=== PATIENT | female | born 1970 | race Caucasian/White ===

== ENCOUNTER 2017-02-22 12:51 | Observation (INO) ==
[2017-02-22 13:27] LABS: Basophils # 0.1 K/mcL (0.0-0.2); Basophils % 1.1 %; Eosinophils # 0.1 K/mcL (0.0-0.6); Eosinophils % 1.7 %; Hematocrit 43.2 % (35.3-44.9); Hemoglobin 14.2 g/dL (11.5-15.4); Immature Granulocytes % 0.2 % (0-4); Lymphocytes # 1.8 K/mcL (0.6-4.6); Lymphocytes % 37.7 %; Mean Corpuscular HGB Conc 32.9 g/dL (31.6-35.5); Mean Corpuscular Hemoglobin 29.9 pg (28.0-33.3); Mean Corpuscular Volume 90.9 fL (83.0-100.0); Mean Platelet Volume 12.8 fL (9.4-12.4); Monocytes # 0.6 K/mcL (0.0-1.3); Monocytes % 12.3 %; Neutrophils # 2.2 K/mcL (1.6-8.9); Platelet Count 130 K/mcL (140-400); Red Blood Count 4.75 M/mcL (3.82-4.97)
[2017-02-22 13:34] LABS: INR 1.1; Prothrombin Time 12.1 Seconds (9.4-12.1)
[2017-02-22 13:37] LABS: Activated Partial Thrombo Time 27.5 Seconds (26.0-36.0)
[2017-02-22 13:39] LABS: BUN/Creatinine Ratio 16 (6-26); Blood Urea Nitrogen 13 mg/dL (7-20); Calcium 9.4 mg/dL (8.6-10.8); Carbon Dioxide 27 mEq/L (19-29); Chloride 107 mEq/L (98-109); Glucose 82 mg/dL (70-99); Osmolality,Calculated 291 (280-300); Potassium 3.9 mEq/L (3.5-4.5); Sodium 141 mEq/L (136-145); eGFR For African Americans > 60 (> 60); eGFR For Non-African Americans > 60 (> 60)
[2017-02-22 13:40] LABS: Albumin 3.9 g/dL (3.5-5.0); Albumin/Globulin Ratio 1.1 (1.1-2.2); Bilirubin,Direct 0.2 mg/dL (0.0-0.5); Bilirubin,Indirect 0.3 mg/dL (0.0-1.2); Bilirubin,Total 0.5 mg/dL (0.2-1.2); Globulin 3.4 g/dL (2.4-3.5); Total Protein 7.3 g/dL (6.0-8.3)
--- NOTE | 2017-02-22 13:41 | Emergency Department Note ---
Disposition Clinical Impression: Chest pain, CAD (coronary artery disease), HLD (hyperlipidemia), Stented coronary artery, Abnormal EKG, Anxiety Disposition: Admitted As Inpatient Referrals: Bharath Perera DO [Primary Care Provider] - Forms: ED Satisfaction Letter General Adult HPI - General Chief complaint: ED Chest Pain Stated complaint: chest pain Time Seen by Provider: 02/22/17 13:05 Source: patient Limitations: no limitations - History of Present Illness HPI Narrative: 46-year-old female with known coronary disease and multiple cardiac stents reports emergency department complaining of midsternal chest pain radiating to the left arm. She has had intermittent symptoms for one week. The patient has had no trauma. No fever. No cough. No shortness of breath or coughing up blood or leg swelling or pain. No abdominal pain vomiting or diarrhea. There is no history of acute back pain. She has no personal history of aneurysm or DVT or PE. The patient's concerned about her heart. She as had some anxiety symptoms but is not been depressed or feeling suicidal or homicidal. The patient takes Plavix and aspirin daily. The pain is not necessarily associated with exertion. The the pain has been intermittent and recurring. She became concerned so she came to the ED for evaluation. Pain Scale: 0 - Related Data Home Medications Medication Instructions Recorded Confirmed Folic Acid 1 mg PO DAILY 11/22/15 12/29/15 Methotrexate [Otrexup] 10 mg PO QWEEK PRN 11/22/15 12/29/15 Previous Rx's Medication Instructions Recorded Aspirin 81 mg PO DAILY #30 tab.chew 11/24/15 Atorvastatin [Lipitor] 80 mg PO HS #30 tablet 11/24/15 Carvedilol [Coreg] 6.25 mg PO BIDWM #60 tablet 11/24/15 Clopidogrel [Plavix] 75 mg PO DAILY #30 tablet 11/24/15 Lisinopril [Zestril] 2.5 mg PO DAILY #30 tablet 11/24/15 Nitroglycerin 0.4 mg SL Q5MIN PRN #30 tab.subl 11/24/15 Allergies Allergy/AdvReac Type Severity Reaction Status Date / Time No Known Allergies Allergy Verified 11/22/15 12:48 All systems ED: reviewed and negative except as stated. Past Medical History - Past Medical History Medical history: Reports: arthritis, coronary artery disease, hyperlipidemia, myocardial infarction Surgical history: Reports: angioplasty/stent, Psychiatric history: Reports: no psych history QUALITY CONTROL ASSOCIATE history: Reports: no QUALITY CONTROL ASSOCIATE history - Social History Smoking Status: Former smoker Smokeless Tobacco Status: No Alcohol use: Reports: none Drug use: Reports: none Physical Exam - General Limitations: no limitations General appearance: alert, in no apparent distress - Head Head exam: atraumatic, normocephalic, normal inspection - Eye Eye exam: Present: normal appearance, PERRL, EOMI. Absent: scleral icterus, conjunctival injection, miosis, mydriasis - ENT ENT exam: normal exam, normal oropharynx, mucous membranes moist, TM's normal bilaterally, normal external ear exam - Neck Neck exam: Present: normal inspection, full ROM, trachea midline. Absent: tenderness, meningismus - Chest Chest inspection: Present: normal inspection, symmetric chest wall rise. Absent : tenderness - Respiratory Respiratory exam: Present: normal lung sounds bilaterally. Absent: respiratory distress, accessory muscle use, prolonged expiratory phase - Cardiovascular Cardiovascular exam: Present: regular rate, normal rhythm, normal heart sounds - Abdominal Exam Abdominal exam: Present: soft, Non-Tender, normal bowel sounds. Absent: tenderness, distention, guarding, rebound, rigidity, pulsatile mass - Extremities Exam Extremities exam: Present: normal inspection, full ROM, normal capillary refill. Absent: tenderness, pedal edema, joint swelling, calf tenderness - Expanded Lower Extremity Exam Lower leg exam: Absent: Homans' sign Neurovascular/Tendon exam: Present: normal capillary refill. Absent: pulse deficit, motor deficit, sensory deficit, tendon deficit, extremity cold to touch , pallor - Back Exam Back exam: Present: normal inspection, full ROM. Absent: tenderness, CVA tenderness (R), CVA tenderness (L), vertebral tenderness - Neurological Exam Neurological exam: Present: alert, oriented X3, CN II-XII intact. Absent: motor sensory deficit - Psychiatric Psychiatric exam: Present: normal affect, normal mood - Skin Skin exam: Present: warm, dry, intact, normal color. Absent: rash, cyanosis, diaphoresis, erythema, pallor, mottled Course Vital Signs Temperature 98.4 F 02/22/17 13:02 Pulse Rate 89 02/22/17 13:02 Respiratory Rate 16 02/22/17 13:02 Blood Pressure 157/106 02/22/17 13:02 O2 Sat by Pulse Oximetry 98 02/22/17 13:02 Temperature 98.4 F 02/22/17 13:02 Pulse Rate 85 02/22/17 13:17 Respiratory Rate 16 02/22/17 13:17 Blood Pressure 151/99 02/22/17 13:17 O2 Sat by Pulse Oximetry 98 02/22/17 13:17 Oxygen Delivery Oxygen Delivery Room Air Medical Decision Making - MDM Narrative Medical decision making narrative: The patient's EKG shows some slight ST elevations in the inferior leads, similar to previous EKG, we consulted with Dr. Cordova, nail technician teacher, who does not feel the patient meets STEMI criteria and does not need to go to the [facility] immediately. Based on the patient's risk factors including coronary disease, hyperlipidemia, obesity, age, previous coronary stents, and acute chest pain, I thought it be appropriate to admit the patient at the hospital, I discussed case with the hospice on-call who is except for the patient to their care. Aspirin was ordered. The patient is currently stable. - Lab Data Lab results reviewed: Yes I reviewed the patient's lab results. Result diagrams: 02/22/17 13:15 02/22/17 13:15 Lab Results 02/22/17 02/22/17 02/22/17 Range/Units 13:15 13:15 13:15 WBC 4.7 (4.3-11.1) K/mcL RBC 4.75 (3.82-4.97) M/mcL Hgb 14.2 (11.5-15.4) g/dL Hct 43.2 (35.3-44.9) % MCV 90.9 (83.0-100.0) fL MCH 29.9 (28.0-33.3) pg MCHC 32.9 (31.6-35.5) g/dL RDW 13.0 (11.5-14.5) % Plt Count 130 L (140-400) K/mcL MPV 12.8 H (9.4-12.4) fL Immature Gran % 0.2 (0-4) % Seg Neutrophils % 47.0 % Lymphocytes % 37.7 % Monocytes % 12.3 % Eosinophils % 1.7 % Basophils % 1.1 % Neutrophils # 2.2 (1.6-8.9) K/mcL Lymphocytes # 1.8 (0.6-4.6) K/mcL Monocytes # 0.6 (0.0-1.3) K/mcL Eosinophils # 0.1 (0.0-0.6) K/mcL Basophils # 0.1 (0.0-0.2) K/mcL PT 12.1 (9.4-12.1) Seconds INR 1.1 APTT 27.5 (26.0-36.0) Seconds Sodium 141 (136-145) mEq/L Potassium 3.9 (3.5-4.5) mEq/L Chloride 107 (98-109) mEq/L Carbon Dioxide 27 (19-29) mEq/L BUN 13 (7-20) mg/dL Creatinine 0.79 (0.57-1.11) mg/dL Est GFR ( Amer) > 60 (> 60) Est GFR (Non-Af Amer) > 60 (> 60) BUN/Creatinine Ratio 16 (6-26) Glucose 82 (70-99) mg/dL Calculated Osmolality 291 (280-300) Calcium 9.4 (8.6-10.8) mg/dL - Radiology Data Radiology results reviewed: Yes I reviewed the patient's radiology results.
[2017-02-22] MEDS ORDERED: Aspirin 325 MG TABLET PO ONE (13:45)
--- NOTE | 2017-02-22 15:57 | Internal Med History&Physical ---
Date of Encounter: 02/22/17 Time of Encounter: 14:30 Assessment and Plan (1) Chest pain Current visit: Yes Status: Acute Patient with chest pain is atypical in nature. Associated with uncontrolled hypertension. History of coronary artery disease and CO. Observation in the hospital. Trend troponins. Telemetry. Stress test in a.m. Check lipid profile and A1c. Control blood pressure. Qualifiers: Chest pain type: precordial pain Qualified Code(s): R07.2 - Precordial pain (2) Essential hypertension Current visit: Yes Status: Chronic Uncontrolled. Resume home medications. Patient has not taken her medications this morning. We will monitor blood pressure closely and adjust antihypertensive regimen accordingly. (3) CAD (coronary artery disease) Current visit: Yes Status: Chronic Continue aspirin, Plavix beta daly and statin. Qualifiers: Coronary Disease-Associated Artery/Lesion type: [place] artery [place] vs. transplanted heart: [place] heart Associated angina: with other forms of angina Qualified Code(s): I25.118 - Atherosclerotic heart disease of [place] coronary artery with other forms of angina pectoris (4) HLD (hyperlipidemia) Current visit: Yes Status: Acute Continue statin. Check lipid profile. Qualifiers: Hyperlipidemia type: mixed hyperlipidemia Qualified Code(s): E78.2 - Mixed hyperlipidemia Internal Medicine - H&P: HPI Chief complaint: Chest pain Admitted From: Emergency Dept Plans for Post Hospital Care: Home History of present illness: Ms. Cadet is a 46 year old female patient with history of coronary artery disease status post PCI with stents in October 2015 presented to the ER with complaints of chest pain. Her pain is mainly located in the left upper chest region close to her shoulder. She is nonradiating. It is not like the pain she had when she had a prior CO. She was at rest when this began. This pain has been intermittent for the past week and not associated with any shortness of breath or exertion. Her pain has improved after coming to the ER. She is on dual antiplatelet therapy and also take statin and beta daly. She follows up with cardiology as outpatient. Since her cardiac catheterization in 2015, she had been mostly pain free with occasional intermittent twinges lasting for a few seconds. She has never had this kind of pain. No nausea or vomiting. No dizziness or lightheadedness. She does have occasional palpitations. She denies any trauma or injury to her left shoulder. Past Med Surg Social Fam HX - Past Medical History Attestation: Yes The following information was validated with the patient. Source: patient Medical history: arthritis, coronary artery disease, hyperlipidemia, myocardial infarction, other (Psoriasis) Psychiatric history: no psych history - Past Surgical History Surgical History: angioplasty/stent, - Social History Smoking Status: Former smoker Smokeless Tobacco Status: No Alcohol use: none Drug use: none - Family History Father Living Status: Still Living Hx Family Cardiac Disorders: Yes (CO in 60s. ) Hx Family Endocrine Disorder: Yes (diabetes) Paternal Grandmother Family Member Ethnicity: Non- Living Status: Still Living Hx Family Cardiac Disorders: Yes (grandmother, father) Hx Family Respiratory Disorders: Yes (black lung) Hx Family Cancer: No Hx Family GI Disorders: No Hx Family Endocrine Disorder: Yes (grandmother, aunt) Hx Family Neuromuscular Disorders: No Hx Family Neurologic Disorders: Yes (uncle) Hx Family HEENT Disorders: No Hx Family Autoimmune Disorders: No Internal Medicine - H&P: Meds Aspirin 81 mg PO DAILY #30 tab.chew 11/24/15 [Rx] Atorvastatin [Lipitor] 80 mg PO HS #30 tablet 11/24/15 [Rx] Clopidogrel [Plavix] 75 mg PO DAILY #30 tablet 11/24/15 [Rx] Nitroglycerin 0.4 mg SL Q5MIN PRN #30 tab.subl 11/24/15 [Rx] Metoprolol XL (24 HR) Succ [Toprol XL] 50 mg PO DAILY 02/22/17 [History] Secukinumab [Cosentyx Pen] 150 mg SQ TH 02/22/17 [History] Allergies No Known Allergies Allergy (Verified 11/22/15 12:48) All Systems PM: A 10-system review of systems was performed and is negative for pertinent findings except as documented above in the HPI. - Constitutional Constitutional: no chills, no fever(s), no night sweats - EENT Eyes: no change in vision, no discharge, no pain, no photophobia Ears: no ear discharge, no ear pain, no tinnitus Nose, mouth and throat: no dysphagia, no nasal discharge, no neck pain, no sore throat - Cardiovascular Cardiovascular ROS IM: chest pain, palpitations, no diaphoresis, no dyspnea, no lightheadedness, no syncope - Respiratory Respiratory: no cough, no dyspnea, no wheezing, no excessive phlegm production - Gastrointestinal Gastrointestinal: no abdominal pain, no diarrhea, no hematemesis, no hematochezia, no melena, no nausea, no vomiting - Genitourinary Genitourinary: no change in urinary stream, no dysuria, no flank pain, no hematuria - Musculoskeletal Musculoskeletal ROS IM: no numbness, no tingling - Integumentary Integumentary IM: no rash, no unusual bruising - Neurological Neurological ROS: no confusion, no convulsions, no focal weakness, no numbness, no tingling, no tremor(s) - Hematologic/Lymphatic Hematologic/Lymphatic: no easy bruising - Constitutional Vitals: Temp Pulse Resp BP Pulse Ox 98.4 F 87 20 150/116 96 02/22/17 13:02 02/22/17 14:05 02/22/17 15:38 02/22/17 15:38 02/22/17 14:05 General appearance: Present: cooperative, A&O X 3, answers questions appropriately - Eye Eye exam: Present: EOMI, PERRL, conjuntiva pink, sclera anicteric - Respiratory Respiratory exam: Present: CTAB. Absent: accessory muscle use, rales, rhonchi, wheezes - Cardiovascular Cardiovascular exam: Present: RRR, +S1, +S2. Absent: diastolic murmur, gallop, rubs, systolic murmur - GI/Abdominal GI/Abdominal exam: Present: normal bowel sounds, soft, no peritoneal signs. Absent: distended, tenderness - Extremities Exam Extremities exam: Present: warm, radial pulses palpable and symetrical. Absent : calf tenderness, cyanotic, pedal edema Additional comments: Examination of left shoulder joint essentially normal with no tenderness. Normal range of motion. No swelling palpable. - Neurological Exam Neurological exam: Present: CN II-XII intact, oriented X3, no focal deficits, strengths equal and symetr throughout. Absent: facial droop, speech deficit - Psychiatric Psychiatric exam: Present: flat affect - Skin Skin exam: Present: dry, intact Internal Med - H&P Results - Labs CBC & Chem 7: 02/22/17 13:15 02/22/17 13:15 - EKG Data -: EKG Interpreted by Myself EKG shows normal: sinus rhythm - EKG Data Prior EKG available for review: yes When compared to previous EKG: there is no significant change EKG comments: 02/22/17 16:05 Q waves with slight(<1 mm) ST segment elevation noted on the inferior leads. Present on previous EKGs also. - Impressions Impressions Chest X-Ray 02/22/17 13:06 IMPRESSION: No acute cardiopulmonary process. D/ / 02/22/2017 13:59:36 Larry Oliveros MD / Constance Griffin Interpreting Provider: Larry Oliveros MD - Attending Attestation This document has been at least partially created by [employer] recognition technology by Dr. Brunson. Errors in grammar, wording or other phrases may exist. If errors are found after the documentation is signed, they will be addressed individually in the addendum section of this document when appropriate.
[2017-02-22] MEDS ORDERED: Acetaminophen 325 MG TABLET PO PRN (16:09)
[2017-02-22] MEDS ORDERED: Naloxone 0.4 MG/ML INJ IVP PRN (16:09)
[2017-02-22] MEDS ORDERED: Nitroglycerin 0.4 MG TAB.SUBL SL PRN (16:18)
[2017-02-22] MEDS: Metoprolol XL (24 HR) Succ 50 MG TAB.ER.24H PO SCH (16:33)
[2017-02-23] MEDS ORDERED: Regadenoson 0.4 MG/5 ML SYRINGE IVP ONE (06:13)
[2017-02-23 07:14] LABS: Basophils # 0.1 K/mcL (0.0-0.2); Basophils % 1.1 %; Eosinophils # 0.1 K/mcL (0.0-0.6); Eosinophils % 2.5 %; Hematocrit 40.7 % (35.3-44.9); Hemoglobin 13.8 g/dL (11.5-15.4); Immature Granulocytes % 0.2 % (0-4); Lymphocytes # 1.9 K/mcL (0.6-4.6); Lymphocytes % 36.6 %; Mean Corpuscular HGB Conc 33.9 g/dL (31.6-35.5); Mean Corpuscular Hemoglobin 31.2 pg (28.0-33.3); Mean Corpuscular Volume 91.9 fL (83.0-100.0); Mean Platelet Volume 13.1 fL (9.4-12.4); Monocytes # 0.6 K/mcL (0.0-1.3); Monocytes % 10.8 %; Neutrophils # 2.6 K/mcL (1.6-8.9); Platelet Count 125 K/mcL (140-400); Red Blood Count 4.43 M/mcL (3.82-4.97); Red Cell Distribution Width 13.1 % (11.5-14.5); Segmented Neutrophils % 48.8 %
[2017-02-23 07:30] LABS: BUN/Creatinine Ratio 14 (6-26); Blood Urea Nitrogen 11 mg/dL (7-20); Calcium 8.8 mg/dL (8.6-10.8); Carbon Dioxide 24 mEq/L (19-29); Chloride 106 mEq/L (98-109); Chol/HDL Ratio 3.1 (0-4.9); Cholesterol 122 mg/dL (< 200); Glucose 85 mg/dL (70-99); HDL Cholesterol 40 mg/dL (40-59); LDL Cholesterol,Calculated 58 mg/dL (0-99); Osmolality,Calculated 287 (280-300); Potassium 3.9 mEq/L (3.5-4.5); Sodium 139 mEq/L (136-145); Triglycerides 120 mg/dL (< 150); eGFR For African Americans > 60 (> 60); eGFR For Non-African Americans > 60 (> 60)
[2017-02-23] MEDS ORDERED: Aspirin 81 MG TAB.CHEW PO SCH (09:00)
[2017-02-23] MEDS: Metoprolol XL (24 HR) Succ 50 MG TAB.ER.24H PO SCH (09:24)
--- NOTE | 2017-02-23 10:20 | Nuclear Medicine Stress Report ---
Low Level Regadenoson Name: Emi Cadet Date of Study: 02/23/2017 Date: 1970 Ht: 70.0 in Medical Record#: [id number] Age: 46 Wt: 220.0 lb Gender: Female Order #: [id number] Location: [facility] Room: [facility] Supervising Provider: Yessi Garcia CNP Reading Physician: Jaqueline Salas DO Ordering Physician: Sherrill Carmichael CNP Primary Care Physician: Bharath Perera DO Stress Technologist: Francoise Snow, VERITO Compound Machine Operator: Dillan Fu Indications: Chest Pain Impression: Small sized, fixed defect involving the basal and mid inferolateral wall associated with mild decrease in wall thickening. Cannot exclude prior infarct in this area. No perfusion abnormalities consistent with ischemia. Gated EF = 60%. History: Hypertension Hypercholesteremia Stress Test Summary: Stress Test Type: Low level pharmacologic Regadenoson 0.4mg/5ml given IV Baseline Information: Initial Heart Rate: 65 Blood Pressure: 118/86 Stress Information: Test Terminated Due to (primary): As per protocol Maximum Blood Pressure: 128/88 Maximum Heart Rate: 109 Percent Maximum Heart Rate Achieved: 62 Double Product: [id number] METS Reached: 2.1 Symptoms: No chest symptoms Nuclear Summary: SPECT myocardial perfusion imaging using Tc99m Sestamibi given intravenously was performed at rest and following cardiac stress testing. The resting images were obtained following initial dose of 10.8 mCi. Following stress an additional dose of 34.6 mCi was given at peak exercise or 30 seconds post regadenoson infusion. Medication Given: Time Medication Dose Units Route Findings: Stress Note * Resting ECG demonstrated normal sinus rhythm with nonspecific ST abnormality. * Patient had no chest pain during stress. * No arrhythmias were noted during stress. * Artifact throughout exercise. However, no appreciable change in ECG from baseline during exercise and recovery. Hemodynamic responses * Normal hemodynamic responses to pharmacologic stress. Study Quality * Study quality was fair. Left Ventricle * The left ventricle is not dilated. TID * No evidence of transient ischemic dilatation. Lung Uptake * There is no evidence of increase lung uptake. PERFUSION * There is a small sized, fixed perfusion defect involving the basal and mid inferolateral wall. * Other areas demonstrate normal perfusion. Gated EF % * Gated EF = 60%. Updated by Jaqueline Salas on 02/23/2017 10:12:59 AM electronically signed on 02/23/2017 10:14:55 AM with status of Final
--- NOTE | 2017-02-23 11:37 | Electrocardiograph Report ---
[place] [facility] Test Date: 2017-02-22 Pat Name: Emi Cadet Department: 105 Room: 3B49 Gender: F Segment Block Layer: : 1970 Requested By: Jorge Davies Order Number: [id number] Reading MD: Justin Heredia MD Measurements Intervals [place] Rate: 84 P: 27 WA: 181 QRS: -10 QRSD: 106 T: 87 QT: 358 QTc: 398 Interpretive Statements SINUS RHYTHM INFERIOR MYOCARDIAL INFARCTION [40+ ms Q WAVE AND/OR ST/T ABNORMALITY IN II/aVF], PROBABLY OLD Electronically Signed On 02-23-2017 11:36:19 EDT by Justin Heredia MD
[2017-02-23 11:53] VITALS: BP 122/79
--- NOTE | 2017-02-23 14:40 | Discharge Summary ---
Date of Encounter: 02/23/17 Time of Encounter: 13:00 - Discharge Diagnosis (1) Chest pain Priority: Primary Status: Acute Comments: Patient presented to the emergency room yesterday with intermittent chest pain for one week. She reports is midsternal with radiation to left arm, primarily left shoulder. She denies any injury, falls, new change in routine. She denies shortness of breath, hemoptysis, nausea, vomiting, diarrhea, peripheral edema. Patient has known coronary artery disease, NC with stents, and because of her history was she was concerned with heart disease. She did have a two-view left shoulder x-ray that was unremarkable, no osseous abnormality. At time of exam patient is pain-free. It is moving about the room without any difficulty or shortness of breath. She denies dyspnea on exertion or chest pain with exertion. Her stress test today showed small sized, fixed defect involving the basal and mid inferolateral wall, associated with mild decrease in wall thickening. The stress Test could not exclude prior infarct in this area. There were no perfusion abnormalities consistent with ischemia. Her gated EF is 60%.i did speak with cardiology regarding these findings, she is to follow up outpatient. Patient will continue her normal home medications on discharge. Qualifiers: Chest pain type: precordial pain Qualified Code(s): R07.2 - Precordial pain (2) CAD (coronary artery disease) Priority: Secondary Status: Chronic Comments: Chronic. Patient has a history of coronary artery disease, stents, NC. Continue home medications. Aspirin, Lipitor, Plavix, Coreg, Zestril, nitroglycerin. Qualifiers: Coronary Disease-Associated Artery/Lesion type: [place] artery [place] vs. transplanted heart: [place] heart Associated angina: with other forms of angina Qualified Code(s): I25.118 - Atherosclerotic heart disease of [place] coronary artery with other forms of angina pectoris (3) HLD (hyperlipidemia) Priority: Secondary Status: Chronic Comments: Chronic. Patient does take atorvastatin. Restart home medications. Qualifiers: Hyperlipidemia type: mixed hyperlipidemia Qualified Code(s): E78.2 - Mixed hyperlipidemia (4) Essential hypertension Priority: Secondary Status: Chronic Comments: Well-controlled inpatient. Patient does take a beta daly and PRESTON inhibitor. Continue medications at home. (5) DVT prophylaxis Priority: Secondary Status: Acute Comments: Early ambulation. Patient takes Plavix. - Discharge Medications Home Medications: Aspirin 81 mg PO DAILY #30 tab.chew 11/24/15 [Rx] Atorvastatin [Lipitor] 80 mg PO HS #30 tablet 11/24/15 [Rx] Clopidogrel [Plavix] 75 mg PO DAILY #30 tablet 11/24/15 [Rx] Nitroglycerin 0.4 mg SL Q5MIN PRN #30 tab.subl 11/24/15 [Rx] Metoprolol XL (24 HR) Succ [Toprol Xl] 50 mg PO DAILY 02/22/17 [History] Secukinumab [Cosentyx Pen] 150 mg SQ TH 02/22/17 [History] Allergies/Adverse Reactions: Allergies No Known Allergies Allergy (Verified 11/22/15 12:48) Procedures/tests Complete & Pending: Procedures Performed prior 72 hours Category Date Time Status NM caro perf SPECT multi [NM] Routine Exams 02/22/17 16:18 Taken SP pharm nuclear stress AM 0400 Y 02/23/17 08:00 Completed Date of admission: 02/22/17 15:18 Primary care physician: Bharath Perera Discharging clinician: Sherrill Carmichael Anticipated date of discharge: 02/23/17 - Patient Status Disposition: Home, Self-Care Condition: Good Functional capacity at discharge: independent ambulation Overall status at discharge: patient is back to baseline - Discharge Instructions Follow Up With: Bharath Perera DO [Primary Care Provider] - (Please call to schedule a follow up appointment ) Carl Hutton MD [Partnered Physician] - 03/01/17 8:50 am Additional Instructions: Please follow up with cardiology for recheck. Follow up with your PCP for a hospital follow up, as well. Resume your home medications Return to the ER for returning chest pain, change in condition, if your pain returns, or if you have any other problems or concerns. - Diet and Activity Activity: increase activity as tolerated Diet: advance to your usual diet Hospital course: Ms. Cadet is a 46 year old female with known history of essential hypertension, coronary artery disease, NC, stent placement, hyperlipidemia She presented to the emergency department last night for 1 week history of left chest pain, left shoulder pain, left arm pain. She described it as intermittent and dull. She did not have shortness of breath, nausea, diaphoresis with this pain. She reports that nothing made it better and nothing made it worse. She has not had pain like this before. She denies any injury or change in routine that would cause the arm pain. X-ray was negative for fracture dislocation or any osseous abnormality. She does not have weakness or numbness and tingling in that extremity. She is able to use it as she normally would. Patient had stress test today showed a small sized, fixed defect involving the basal and mid inferolateral wall associated with mild decrease in wall thickening. This test could not exclude prior infarct in that area. There are no perfusion abnormalities consistent with ischemia noted. Her gated EF is 60% . I spoke with cardiology [employer] who discussed the findings with broker associate, states there is no need for concern of patient should follow up outpatient. Patient is pain-free currently she has been up walking around in the room, she does not appear to be in any distress, no dyspnea on exertion, shortness of breath. Her EKG was normal sinus rhythm. Her troponins were negative 3. - Time Spent with Patient Total time spent providing and/or coordinating discharge services: Less than 30 minutes - Constitutional Vitals: Temp Pulse Resp BP Pulse Ox 98.1 F 66 22 122/79 94 02/23/17 11:52 02/23/17 11:52 02/23/17 11:52 02/23/17 11:52 02/23/17 11:52 General appearance: Present: cooperative, A&O X 3, pleasant, no acute distress, answers questions appropriately - Head Head exam: Present: normal inspection - Eye Eye exam: Present: normal appearance, conjuntiva pink - ENT ENT exam: Present: mucous membranes moist, normal exam - Neck Neck exam general surgery: Present: normal inspection. Absent: lymphadenopathy , tenderness - Respiratory Respiratory exam: Present: CTAB. Absent: chest wall tenderness, rales, respiratory distress, rhonchi, stridor, wheezes - Cardiovascular Cardiovascular exam: Present: RRR, +S1, +S2. Absent: diastolic murmur, systolic murmur - GI/Abdominal GI/Abdominal exam: Present: normal bowel sounds, soft. Absent: hepatomegaly, tenderness - Extremities Exam Extremities exam: Present: normal capillary refill, warm, radial pulses palpable and symetrical. Absent: pedal edema, tenderness - Neurological Exam Neurological exam: Present: alert, normal gait, oriented X3, no focal deficits, strengths equal and symetr throughout. Absent: pronater drift, facial droop, speech deficit
[2017-02-23] MEDS ORDERED: SECUKINUMAB 150 MG SQ SCH (16:18)
== END 2017-02-23 15:52 | disposition home or self-care (01) ==
LOC: 3BNU 12:51 → EMEROO 12:51 → 3BNU 15:41
PROVIDERS: ADMIT Internal Medicine; ATTEND Registered Nurse

== ENCOUNTER 2020-07-16 10:52 | Observation (INO) ==
[2020-07-16 11:39] LABS: Hematocrit 42.7 % (35.3-44.9); Immature Granulocytes % 0.2 % (0-4); Red Cell Distribution Width 13.8 % (11.5-14.5)
[2020-07-16 11:41] LABS: Basophils % 0.8 %; Eosinophils # 0.1 K/mcL (0.0-0.6); Eosinophils % 1.6 %; Hemoglobin 13.5 g/dL (11.5-15.4); Immature Platelets 25.6 % (1.1-6.1); Lymphocytes # 2.1 K/mcL (0.6-4.6); Lymphocytes % 43.3 %; Mean Corpuscular HGB Conc 31.6 g/dL (31.6-35.5); Mean Corpuscular Volume 91.8 fL (83.0-100.0); Monocytes # 0.4 K/mcL (0.0-1.3); Monocytes % 8.8 %; Neutrophils # 2.2 K/mcL (1.6-8.9); Red Blood Count 4.65 M/mcL (3.82-4.97); Segmented Neutrophils % 45.3 %; White Blood Count 4.9 K/mcL (4.3-11.1)
[2020-07-16 11:42] LABS: Platelet Count 93 K/mcL (140-400)
[2020-07-16 11:45] LABS: INR 1.3; Prothrombin Time 14.2 Seconds (9.4-12.1)
[2020-07-16 11:47] LABS: Activated Partial Thrombo Time 33.5 Seconds (26.0-36.0)
[2020-07-16 12:02] LABS: BUN/Creatinine Ratio 19 (6-26); Blood Urea Nitrogen 15 mg/dL (6-20); Calcium 9.9 mg/dL (8.6-10.3); Carbon Dioxide 24 mEq/L (23-29); Chloride 105 mEq/L (98-107); Glucose 91 mg/dL (70-105); Osmolality,Calculated 290 (280-300); Potassium 3.7 mEq/L (3.5-5.1); Sodium 140 mEq/L (136-145); Troponin I < 0.03 ng/mL (< 0.04); eGFR For African Americans > 60 (> 60); eGFR For Non-African Americans > 60 (> 60)
[2020-07-16] MEDS ORDERED: Nitroglycerin 0.4 MG TAB.SUBL SL PRN (14:54)
[2020-07-16] MEDS ORDERED: FluocinoNIDE 0.05% CRM 15 GM TUBE TP PRN (14:54)
[2020-07-16] MEDS ORDERED: *HR* HYDROcodone/Acet 5/325 mg TABLET PO PRN (14:55)
[2020-07-16] MEDS ORDERED: Mag Hydrox/Al Hydrox/Simeth 30 ML UDC PO PRN (14:55)
[2020-07-16] MEDS ORDERED: *HR* Promethazine 25 MG/ML VIAL IVP PRN (14:55)
[2020-07-16] MEDS ORDERED: MOM Conc 10 ML UD.LIQ PO PRN (14:55)
[2020-07-16] MEDS ORDERED: Naloxone 0.4 MG/ML INJ IVP PRN (14:55)
[2020-07-16] MEDS ORDERED: Ondansetron 4 MG/2 ML VIAL IVP PRN (14:55)
[2020-07-16] MEDS ORDERED: Acetaminophen 325 MG TABLET PO PRN (14:55)
[2020-07-16] MEDS ORDERED: Perflutren Lipid Microsphere 1.3 ML in 0.9 % Sodium Chloride 8.7 ML IVP PRN (14:58)
[2020-07-16] MEDS: *HR* Heparin 5,000 UNIT/ML VIAL SQ SCH (17:40)
[2020-07-17 01:55] LABS: Basophils % 0.7 %; Eosinophils # 0.1 K/mcL (0.0-0.6); Eosinophils % 2.2 %; Hematocrit 41.3 % (35.3-44.9); Hemoglobin 13.6 g/dL (11.5-15.4); Immature Granulocytes % 0.2 % (0-4); Immature Platelets 22.9 % (1.1-6.1); Lymphocytes % 56.3 %; Mean Corpuscular HGB Conc 32.9 g/dL (31.6-35.5); Mean Corpuscular Hemoglobin 30.4 pg (28.0-33.3); Mean Corpuscular Volume 92.2 fL (83.0-100.0); Mean Platelet Volume 14.6 fL (9.4-12.4); Monocytes # 0.5 K/mcL (0.0-1.3); Neutrophils # 1.7 K/mcL (1.6-8.9); Platelet Count 107 K/mcL (140-400); Red Blood Count 4.48 M/mcL (3.82-4.97); Red Cell Distribution Width 13.6 % (11.5-14.5); Segmented Neutrophils % 31.6 %; White Blood Count 5.4 K/mcL (4.3-11.1)
[2020-07-17 02:12] LABS: BUN/Creatinine Ratio 18 (6-26); Blood Urea Nitrogen 11 mg/dL (6-20); Calcium 9.3 mg/dL (8.6-10.3); Carbon Dioxide 27 mEq/L (23-29); Chloride 105 mEq/L (98-107); Chol/HDL Ratio 2.8 (0-4.9); Cholesterol 102 mg/dL (< 200); Glucose 78 mg/dL (70-105); HDL Cholesterol 36 mg/dL (40-59); LDL Cholesterol,Calculated 48 mg/dL (< 100); Magnesium 2.1 mg/dL (1.6-2.6); Osmolality,Calculated 290 (280-300); Phosphorous 4.3 mg/dL (2.7-4.5); Potassium 3.7 mEq/L (3.5-5.1); Sodium 141 mEq/L (136-145); Triglycerides 91 mg/dL (< 150); eGFR For African Americans > 60 (> 60); eGFR For Non-African Americans > 60 (> 60)
[2020-07-17] MEDS: *HR* Heparin 5,000 UNIT/ML VIAL SQ SCH (03:08)
[2020-07-17] MEDS ORDERED: Aspirin 81 MG TAB.CHEW PO SCH (09:00)
[2020-07-17] MEDS ORDERED: amLODIPine 5 MG TABLET PO SCH (09:00)
[2020-07-17] MEDS ORDERED: Metoprolol XL (24 HR) Succ 50 MG TAB.ER.24H PO SCH (09:00)
[2020-07-17 13:31] VITALS: BP 135/87
== END 2020-07-17 17:56 | disposition home or self-care (01) ==
LOC: EMEROOARM 10:52 → 3BNU 10:52
PROVIDERS: ADMIT Internal Medicine; ATTEND Internal Medicine